=== PATIENT | male | born 1950 | race Hispanic/Latino ===

== ENCOUNTER 2019-02-28 07:22 | Day surgery (SDC) | payer OTHER ==
--- NOTE | 2019-02-28 08:12 | Anesthesia Consultation ---
Anesthesia Consult and Med Hx Date of service: 02/28/19 - Airway Anesthetic Teeth Evaluation: Good ROM Head & Neck: Adequate Mental/Hyoid Distance: Adequate Mallampati Class: Class III Intubation Access Assessment: Possibly Difficult - Pre-Operative Health Status ASA Pre-Surgery Classification: ASA3 Proposed Anesthetic Plan: MAC - Pulmonary Hx Smoking: No Hx Asthma: No Hx Respiratory Symptoms: No SOB: No COPD: No Home Oxygen Therapy: No Hx Pneumonia: No Hx Sleep Apnea: Yes - Cardiovascular System Hx Hypertension: Yes Hx Coronary Artery Disease: No Hx Heart Attack/AMI: No Hx Angina: No Hx Percutaneous Transluminal Coronary Angioplasty (PTCA): No Hx Cardia Arrhythmia: No Hx Pacemaker: No Hx Internal Defibrillator: No Hx Valvular Heart Disease: No Hx Heart Murmur: No Hx Peripheral Vascular Disease: No - Central Nervous System Hx Neuromuscular Disorder: No Hx Seizures: No CVA: No Hx Back Pain: No Hx Psychiatric Problems: Yes (anexity/depression ) - Gastrointestinal Hx Ulcer: No Hx Gastroesophageal Reflux Disease: No - Endocrine Hx Renal Disease: No Hx End Stage Renal Disease: No Hx Cirrhosis: No Hx Liver Disease: No Hx Insulin Dependent Diabetes: Yes Hx Non-Insulin Dependent Diabetes: No Hx Thyroid Disease: No Hx Hypothyroidism: No Hx Hyperthyroidism: No - Hematic Hx Anemia: No Hx Sickle Cell Disease: No - Other Systems Hx Alcohol Use: Yes (occ.) Hx Substance Use: No Hx Cancer: No Hx Obesity: Yes
--- NOTE | 2019-02-28 08:14 | Anesthesia Day of Surgery ---
Anesthesia Day of Surgery - Day of Surgery Patient Examined: Yes Patient H&P Reviewed: Yes Patient is NPO: Yes Beta Blockers: No
[2019-02-28] MEDS ORDERED: SODIUM CHLORIDE 0.9% 1000 ML 1,000 ML IV SCH (08:15)
[2019-02-28] MEDS ORDERED: PROPOFOL 200 MG/20 ML VIAL IV ONE ×2 (09:09)
--- NOTE | 2019-02-28 09:55 | Procedure Note ---
Date of procedure: 02/28/19 Pre-op diagnosis: Colon Polyp screening/ P/H/O Colon Polyps Post-op diagnosis: other (Descending colon polyps (3 removed by Hot,Snare Polypectomy) Solitary,Rectal Polyp Ablation done and then removed by cold biopsy/Moderat, Diverticular disease (mostly in the left Colon)/ Minor,IOnternal Hemorrhoid/ Prep was fair to poor.) Procedure: Colonoscopy with Hot,Snare Polypectomy and Polyp Ablation and Cold Biopsy Anesthesia: [facility] Surgeon: DIANA KAM Estimated blood loss: minimal Pathology: list Specimen disposition: to lab Condition: stable Disposition: same day (Avoid aspirin and NSAID for 4 days; otherwise resume home medication. Encourage fiber intake and follow up in 1 to 2 weeks ([phone]).)
--- NOTE | 2019-02-28 09:59 | Operative Report ---
PROCEDURE: Colonoscopy with snare polypectomy. INDICATIONS: The patient is a 67-year-old male with an underlying history of diabetes mellitus type 2 and hypertension, prior history of colon polyp, and also history of diverticular disease, has a family history of cancer. The patient's father had bladder cancer. Colonoscopy was done to make sure that there were not any additional polyps present. DESCRIPTION OF PROCEDURE: Procedure was done in [facility] with MAC anesthesia with the assistance of the GI lab team, which included RN, Viviana Crook; Carlos amador and with assistance of anesthesia. Initial rectal exam was unremarkable. Instrument was passed through the rectum onto the cecum, which was identified by the ileocecal valve and the appendiceal orifice. Visualization was fair to poor. There was moderate diverticular disease, scattered throughout the colon, most pronounced in the left colon. The cecum, ascending colon, transverse colon showed normal mucosa other than for some few scattered diverticula. In the descending colon, there were 3 polyps noted, about 2 were 10 mm in diameter and the other about 12-13 mm in diameter. These were sessile polyps that were removed by hot snare polypectomy and retrieved. In the rectum, there was a 9 mm polyp that was ablated using the tip of the polypectomy snare and then part of it was removed by using a cold biopsy forceps. There was minimal bleeding from the polypectomy sites and no complications associated with the procedure. The rectum showed minor internal hemorrhoid on the retroverted view. ASSESSMENT: Colon polyp screening, history of colon polyps, family history of cancer. The patient had multiple colon polyps, 3 in the descending colon, one in the rectum, moderate diverticular disease, most pronounced in the left colon, minor internal hemorrhoid. The prep was fair to poor. Again, there was minimal bleeding associated with the procedure. No complications associated with the procedure. The patient will be asked to avoid aspirin and aspirin-related products for the next 3-4 days, but otherwise resume home medication. Also, the patient will be encouraged to take fiber supplements and follow up in the office in 1-2 weeks' time. JOB# [id number] WILLIAM/BUD
--- NOTE | 2019-02-28 10:15 | Post Anesthesia Evaluation ---
- Post Anesthesia Evaluation Patient Participated: Yes Airway Patent: Yes Stable Respiratory Function: Yes Nausea/Vomiting: No Temp > 96.8F: Yes Pain Manageable: Yes Adequeate Hydration: Yes Anesthesia Complications: No
[2019-02-28 12:25] VITALS: BP 104/69
== END 2019-02-28 10:30 | disposition home or self-care (01) ==
LOC: GIO 07:22
DX: Z12.11 Encounter for screening for malignant neoplasm of colon (principal); D12.4 Benign neoplasm of descending colon; K57.30 Diverticulosis of large intestine without perforation or abscess without bleeding; E11.9 Type 2 diabetes mellitus without complications; K64.8 Other hemorrhoids; I10 Essential (primary) hypertension; E78.00 Pure hypercholesterolemia, unspecified; G47.30 Sleep apnea, unspecified; E66.9 Obesity, unspecified; M19.90 Unspecified osteoarthritis, unspecified site; Z86.010 Personal history of colon polyps; Z79.899 Other long term (current) drug therapy; Z79.4 Long term (current) use of insulin; Z79.84 Long term (current) use of oral hypoglycemic drugs; Z72.89 Other problems related to lifestyle; Z98.890 Other specified postprocedural states; Z68.31 Body mass index [BMI] 31.0-31.9, adult
CPT/HCPCS: 45385; 82962; 88305; J2704